=== PATIENT | male | born 1995 | race Caucasian/White ===

== ENCOUNTER 2021-12-22 17:30 | Emergency (ER) | payer OTHER ==
[~2021-12-22] VITALS: Ht 172.7 cm; Wt 71.4 kg
[2021-12-22 17:30] VITALS: BP 159/95
[2021-12-22] MEDS ORDERED: FLUORESCEIN OPHTH 1 MG STRIP OS ONE (18:35)
[2021-12-22] MEDS ORDERED: PROPARACAINE 0.5% OPHTH SOL 15ML OS ONE (18:35)
[2021-12-22] MEDS ORDERED: ERYT5OIN25 OS (18:47)
[2021-12-22] MEDS ORDERED: ERYTHROMYCIN OPHTH OINT OS ONE (18:50)
== END 2021-12-22 19:22 | disposition home or self-care (01) ==
LOC: M ED 17:30
DX: S05.02XA Injury of conjunctiva and corneal abrasion without foreign body, left eye, initial encounter (principal); W22.8XXA Striking against or struck by other objects, initial encounter

== ENCOUNTER → 2023-11-30 | Outpatient (CLI) | payer OTHER ==
[~2023-11-30] MED LIST: ERYT5OIN25 OS
== END ==
LOC: M CARPUL 15:08
PROVIDERS: ATTEND Physician Assistant
DX: R05.3 Chronic cough (principal)

== ENCOUNTER → 2024-01-04 | Outpatient (CLI) | payer OTHER | LOC: M RAD 06:25 | PROVIDERS: ATTEND Physician Assistant | DX: M79.672 Pain in left foot (principal); M84.375A Stress fracture, left foot, initial encounter for fracture; X58.XXXA Exposure to other specified factors, initial encounter; Y92.9 Unspecified place or not applicable; Y93.9 Activity, unspecified; Y99.9 Unspecified external cause status; Z98.890 Other specified postprocedural states ==

== ENCOUNTER → 2024-01-13 | Outpatient (CLI) | payer OTHER ==
[~2024-01-13] MED LIST changes: +METHACHOLINE KIT (6 VIAL.NEB PREMIX) INH ONE
== END ==
LOC: M CARPUL 13:20
PROVIDERS: ATTEND Physician Assistant
DX: R05.3 Chronic cough (principal)
CPT/HCPCS: 94070; J7674